=== PATIENT | female | born 1990 | race Caucasian/White ===

== ENCOUNTER 2021-02-24 22:40 | Emergency (ER) | payer MEDICAID, SELFPAY ==
[2021-02-24 22:40] VITALS: BP 130/81; PULSE 105; RESP 16; TEMP 36.6; O2SAT 100; BMI 31.7
--- NOTE | 2021-02-24 23:41 | ED.VIS.DENTA ---
HPI History of Present Illness Chief Complaint: Dental Informant: patient Narrative Narrative: 31-year-old female presenting with dental pain and swelling. Patient states this started a few days ago. She does not have a fever. She believes that she has a cavity in her left lower molar causing the symptoms. She denies difficulty breathing or swallowing. Prior similar symptoms: Yes Recent Illness/Hospitalization: No PFSH PFSH Home Medications naproxen 500 mg PO BID PRN #20 tab 02/24/21 [Rx Last Taken Unknown] penicillin V potassium 500 mg PO 4X/DAY #40 tab 02/24/21 [Rx Last Taken Unknown] Allergy/AdvReac Type Severity Reaction Status Date / Time No Known Allergies Allergy Verified 02/24/21 22:42 ROS ROS ED Constitutional Constitutional ED: Denies fever(s) Eyes Eyes: Denies change in vision ENT ENT ED: Reports other Details: Left lower dental pain ; Denies rhinorrhea or sore throat Cardiovascular Cardiovascular: Denies chest pain Respiratory/Chest Respiratory/Chest: Denies cough or dyspnea Gastrointestinal Gastrointestinal: Denies abdominal pain, nausea or vomiting Musculoskeletal Musculoskeletal: Denies myalgias Integumentary Denies rash Neurologic Neurologic: Denies headache(s) EXAM Physical Exam Const Vital Signs: 02/24/21 22:40 Temperature 98 F Temperature Source Temporal Pulse Rate 105 H Respiratory Rate 16 Blood Pressure 130/81 H Blood Pressure Mean 97 Pulse Ox 100 Oxygen Delivery Method Room Air Positive well nourished and well developed General Appearance ED: well developed HEENT Reports normocephalic and head/scalp atraumatic HEENT Narrative: Left lower molar tenderness to palpation with no surrounding fluctuance. Left mandibular swelling. No sublingual edema. Eyes PERRL and EOMs intact bilaterally Neck supple General: Negative for tenderness Chest Wall inspection of chest normal Resp normal respiratory effort and clear to auscultation bilaterally Cardio regular rate and regular rhythm GI Palpation: Negative for guarding or rebound tenderness present no CVA tenderness Extremity normal to inspection Neuro oriented x3 Sensorium / Orientation: alert Psych mental status grossly normal MDM MDM MDM Narrative Medical decision making narrative: Patient declined IV medications, she states she needs to leave the emergency department to care for her children. She was given Naprosyn and penicillin. She was given a dental referral list. Advised return to ED for worsening complaints. Discharge Plan Triage Chief Complaint: Dental ED Provider: Monika Huntley Dx/Rx/DC Orders Clinical Impression: Odontalgia Instructions: ED Dental Pain Prescriptions: New penicillin V potassium 500 mg tablet 500 mg PO 4X/DAY Qty: 40 RF: 0 naproxen 500 mg tablet 500 mg PO BID PRN Qty: 20 RF: 0 Primary Care Provider: Care Physician,No Primary Referrals: NOT,DEFINED [NON-STAFF] - Disposition Disposition: Home, Self Care
[2021-02-25] MEDS: Penicillin Vk 250 MG Tablet 500 MG PO (00:03)
[2021-02-25] MEDS: HYDROcodone Bitartrate/Apap 5/325 Tablet PO (00:03)
--- NOTE | 2021-02-25 00:08 | ED.RN ---
No IV placed as PT refused, stating she had to get back to her children who are in the car. MD aware, PO meds given and RX sent to pharmacy for meds-to-go.
== END 2021-02-25 00:09 | disposition home or self-care (01) ==
LOC: ED 23:59
PROVIDERS: Emergency Provider Emergency Medicine
DX: K08.89 Other specified disorders of teeth and supporting structures (principal)
CPT/HCPCS: 99282; J0295

== ENCOUNTER 2021-05-19 15:22 | Emergency (ER) | payer MEDICAID, SELFPAY ==
[2021-05-19 15:22] VITALS: BP 119/75; PULSE 86; RESP 16; TEMP 35.6; O2SAT 97; BMI 27.4
--- NOTE | 2021-05-19 15:35 | EX.ED.DYSGE1 ---
HPI History of Present Illness Chief Complaint: Med Refill Detail of Chief Complaint: Request for prescription for Suboxone Informant: patient Narrative Narrative: Patient presents to the emergency department requesting Suboxone prescription for few days until she can be seen in 2 days to have a refill. Patient states she has been on Suboxone for about 4 years. She is in between doctors currently. She ran out yesterday. She feels a little sweaty and chilled at times. Patient denies any other complaints. Patient states she has not used any illicit drugs in over 4 years. Prior similar symptoms: No PFSH PFSH Home Medications naproxen 500 mg PO BID PRN #20 tab 02/24/21 [Rx Last Taken Unknown] penicillin V potassium 500 mg PO 4X/DAY #40 tab 02/24/21 [Rx Last Taken Unknown] Allergy/AdvReac Type Severity Reaction Status Date / Time No Known Allergies Allergy Verified 05/19/21 15:24 Surgical History (Updated 05/19/21 @ 15:39 by Laila Urena) History of Social History Smoking Status: Current every day smoker tobacco type: cigarettes ROS ROS ED Constitutional Constitutional ED: Reports systems reviewed and no addt'l complaints, except as documented, chills and sweats; Denies body ache(s) or change in weight Eyes Eyes: Denies acute decrease in peripheral vision, change in vision, double vision or loss of vision ENT ENT ED: Reports none; Denies ear pain, lip swelling, loss taste/smell, neck pain, otalgia or sore throat Cardiovascular Cardiovascular: Reports none; Denies abdominal pain, chest pain with activity, leg edema, lightheadedness, palpitations, rapid heart rate or syncope Respiratory/Chest Respiratory/Chest: Reports none; Denies change in mental status, dry cough, dyspnea, hemoptysis, shortness of breath at rest or shortness of breath with exertion Gastrointestinal Gastrointestinal: Reports none; Denies abdominal pain, change in stool character, diarrhea, hematemesis, hematochezia, melena, rectal bleeding or vomiting Genitourinary Genitourinary ED: Reports none; Denies abdominal discomfort, anuria, dysuria, genital pain or polyuria Musculoskeletal Musculoskeletal: Reports none; Denies arthralgias, back pain, difficulty walking, extremity pain, muscle weakness or myalgias Integumentary Reports none; Denies abscess or rash Neurologic Neurologic: Reports none; Denies abnormal gait, confusion, focal weakness, frequent falls, headache(s), loss of vision, numbness, paresthesias, radicular pain, vertigo or weakness Psychiatric Psychiatric: Reports systems reviewed and no addt'l complaints, except as documented and none; Denies behavioral changes, confusion, difficulty concentrating, hallucinations, suicidal ideation, tactile hallucinations or visual hallucinations Endocrine Endocrinology: Denies none, cold intolerance, excessive sweating, fatigue or heat intolerance Hematologic/Lymphatic Hematologic/Lymphatic: Reports none; Denies anemia, easy bleeding or easy bruising Allergic/Immunologic Allergic/Immunologic ED: Denies as per HPI, none, lip swelling, mouth swelling, throat swelling, tongue swelling or hives EXAM Physical Exam Const Vital Signs: 05/19/21 15:22 05/19/21 15:39 Temperature 96.1 F L Temperature Source Temporal Pulse Rate 86 Respiratory Rate 16 Respiratory Effort Normal Non-Labored Blood Pressure 119/75 Blood Pressure Mean 89 Pulse Ox 97 Oxygen Delivery Method Room Air Positive well nourished and well developed General Appearance ED: well developed and NAD HEENT Reports TM's clear and moist mucous membranes normocephalic and atraumatic; Negative for trauma or tenderness Tympanic Membrane ED: Yes TM's clear Eyes PERRL and EOMs intact bilaterally General Eye ED: Negative for pale conjunctiva or scleral icterus Neck no lymphadenopathy, supple and no JVD General: Negative for tenderness Chest Wall inspection of chest normal and palpation of chest normal Chest: Negative for tenderness Resp normal respiratory effort and clear to auscultation bilaterally Effort and Inspection: Negative for respiratory distress or pain with movement Auscultation: Negative for rhonchi, wheezes or diminished lung sounds Cardio regular rate, regular rhythm, S1 normal heart sound, S2 normal heart sound and no murmurs Peripheral Pulses: pulses 2+ throughout GI normal to inspection, nondistended, normoactive bowel sounds, soft to palpation, non-tender, non-distended and no masses Back/Spine no CVA tenderness and no thoracic nor lumbar tenderness Extremity normal to inspection General Extremety ED: Negative for edema General Extremity: Negative for edema Neuro oriented x3, CN's II-XII intact bilaterally, no sensory deficits noted and gait normal Sensorium / Orientation: awake, alert, oriented to person, oriented to place and oriented to time Motor Exam: strength 5/5 throughout and strength abnormal Psych mental status grossly normal Skin no rashes or lesions noted and no wounds MDM MDM MDM Narrative Medical decision making narrative: I discussed with [facility] and they are unable to write her prescription either. Patient understands that we are unable to give her a prescription out of the's emergency department as we do not have the proper credentials to do that her [place] license for that. Discharge Plan Triage Chief Complaint: Med Refill ED Provider: Rosenda Savage Dx/Rx/DC Orders Clinical Impression: Encounter for medication refill Prescriptions: No Action penicillin V potassium 500 mg tablet 500 mg PO 4X/DAY Qty: 40 RF: 0 naproxen 500 mg tablet 500 mg PO BID PRN Qty: 20 RF: 0 Primary Care Provider: Care Physician,No Primary Referrals: Care Physician,No Primary [Primary Care Provider] - Activity Restrictions/Additional Instructions: We are unable to fill your prescription as we do not have the proper [place] number or credentials. Please follow-up with the physician who has been writing it for you or the clinic you are about to see in 2 days. You may try potentially other hospital such as [facility] who may be able to help you. Disposition Disposition: Home, Self Care
== END 2021-05-19 16:14 | disposition home or self-care (01) ==
PROVIDERS: Emergency Provider Emergency Medicine
DX: Z76.0 Encounter for issue of repeat prescription (principal)
CPT/HCPCS: 99282

== ENCOUNTER → 2021-05-19 | Outpatient (CLI) | payer MEDICAID, SELFPAY ==
[2021-05-19 12:15] LABS: Amphetamine Urine VISTA NEGATIVE (<1000 ng/mL); Barbiturate Urine VISTA NEGATIVE (< 200 ng/mL); Benzodiazepine Urine VISTA NEGATIVE (< 200 ng/mL); Cocaine Urine VISTA NEGATIVE (< 300 ng/mL); Ecstacy Urine VISTA NEGATIVE (< 500 ng/mL); Methadone Urine VISTA NEGATIVE (< 300 ng/mL); PCP Urine VISTA NEGATIVE (< 25 ng/mL); THC Urine VISTA NEGATIVE (< 50 ng/mL); Vista UDS pH Range 5
== END | disposition home or self-care (01) ==
LOC: LABSPEC 11:01
DX: F11.10 Opioid abuse, uncomplicated (principal)
CPT/HCPCS: 80307

== ENCOUNTER → 2021-08-25 10:40 | Outpatient (CLI) | payer MEDICAID, SELFPAY ==
[2021-08-25 12:11] LABS: Amphetamine Urine VISTA NEGATIVE (<1000 ng/mL); Barbiturate Urine VISTA NEGATIVE (< 200 ng/mL); Benzodiazepine Urine VISTA NEGATIVE (< 200 ng/mL); Cocaine Urine VISTA NEGATIVE (< 300 ng/mL); Ecstacy Urine VISTA NEGATIVE (< 500 ng/mL); Methadone Urine VISTA NEGATIVE (< 300 ng/mL); PCP Urine VISTA NEGATIVE (< 25 ng/mL); THC Urine VISTA NEGATIVE (< 50 ng/mL); Vista UDS pH Range 5
== END ==
DX: F11.10 Opioid abuse, uncomplicated (principal)
CPT/HCPCS: 80307

== ENCOUNTER 2021-10-20 21:48 | Emergency (ER) | payer MEDICAID, SELFPAY ==
[2021-10-20 21:48] VITALS: BP 129/73; PULSE 77; RESP 14; TEMP 37.1; O2SAT 99; BMI 33.5
[2021-10-20 21:55] VITALS: RESP 15
--- NOTE | 2021-10-20 22:32 | ED.RN ---
PT COMPLAINING I CANT BELIEVE KNOW ONE HAS BEEN IN HERE. ATTEMPTED TO EXPLAIN THAT UNFORTUNATELY WE HAVE A VERY SICK CHILD, YEAH, I KNOW BUT THEY SHOULD HAVE BEEN DONE WITH THE 'CHILD' BY NOW AND IN HERE WITH ME, IM GUSHING BLOOD. PT WAS NOT GUSHING BLOOD, PT WAS BLEEDING BUT HAD RAGS ON THE LAC HELPING TO CONTROL THE BLEEDING. THERE WAS NO BLOOD DRIPPING ON THE CHAIR OR FLOOR. PT SIGNIFICANT OTHER STATED THAT SHE WAS ABOUT TO PASS OUT, THIS RN ATTEMPTED TO HAVE PT GET IN BED BUT PT REFUSED.
== END 2021-10-20 23:10 | disposition left against medical advice (07) ==
PROVIDERS: Emergency Provider Emergency Medicine; Visit Provider Emergency Medicine
DX: Z53.21 Procedure and treatment not carried out due to patient leaving prior to being seen by health care provider (principal)

== ENCOUNTER 2021-12-01 10:52 | Outpatient (RCR) | payer MEDICAID, SELFPAY ==
[2021-12-01 11:46] LABS: Amphetamine Urine VISTA NEGATIVE (<1000 ng/mL); Barbiturate Urine VISTA NEGATIVE (< 200 ng/mL); Benzodiazepine Urine VISTA NEGATIVE (< 200 ng/mL); Cocaine Urine VISTA NEGATIVE (< 300 ng/mL); Ecstacy Urine VISTA NEGATIVE (< 500 ng/mL); Methadone Urine VISTA NEGATIVE (< 300 ng/mL); PCP Urine VISTA NEGATIVE (< 25 ng/mL); THC Urine VISTA NEGATIVE (< 50 ng/mL); Vista UDS pH Range 5
== END 2021-12-30 02:04 | disposition home or self-care (01) ==
LOC: LAB 10:52
DX: F11.20 Opioid dependence, uncomplicated (principal)
CPT/HCPCS: 80307